=== PATIENT | female | born 1950 | race American Indian/Alaskan Native ===

== ENCOUNTER 2016-10-12 12:00 | Day surgery (SDC) | payer MEDICARE ==
[2016-10-12] MEDS ORDERED: XYLOCAINE 1%/ EPI 1:100,000 INFILTRATI ONE ×2 (13:10→14:44)
[2016-10-12] MEDS ORDERED: MARCAINE 0.5% 30 ML INFILTRATI ONE (13:10)
[2016-10-12] MEDS ORDERED: NACL 0.9% IR ONE (14:44)
[2016-10-12] MEDS ORDERED: MARCAINE 0.5% INFILTRATI ONE (14:44)
[2016-10-12 14:58] VITALS: BP 143/83
--- NOTE | 2016-10-12 15:15 | Short Stay Summary ---
Invasive Assessment - Date Date of service: 10/12/16 - History & Physical H&P: obtained from office Allergies/Adverse Reactions: Allergies No Known Allergies Allergy (Unverified 10/05/16 15:58) Home Medications: Home Medications Medication Instructions Recorded Confirmed Last Taken Type Alendronate Sodium [Alendronate 70 mg PO QWEEK 10/12/16 10/12/16 Unknown History Sodium] Amlodipine Besylate [Amlodipine 5 mg PO QDAY 10/12/16 10/12/16 Unknown History Besylate] Ergocalciferol [Vitamin D2] 1 cap PO QWEEK 10/12/16 10/12/16 Unknown History Losartan/Hydrochlorothiazide 1 tab PO QDAY 10/12/16 10/12/16 Unknown History [Losartan-Hctz 100-25 mg Tab] Losartan/Hydrochlorothiazide 1 tab PO QDAY 10/12/16 10/12/16 Unknown History [Losartan-Hctz 100-25 mg Tab] Metoprolol [Lopressor] 25 mg PO BID 10/12/16 10/12/16 Unknown History Omeprazole (Nf) [PriLOSEC (Nf)] 20 mg PO DAILY 10/12/16 10/12/16 Unknown History Sitagliptin/Metformin (Nf) 1 tab PO QDAY 10/12/16 10/12/16 Unknown History [Janumet 50-1,000 mg (Nf)] - Procedure Note Procedure: excision of STM Findings: see path Pathology: list (stm) Specimen disposition: to lab Estimated blood loss: none Tolerated Procedure Well: Yes Complications: none Invasive Assessment DC Note - Instructions Activity: no restrictions, other (may shower in 2 days) Follow up with: IDALMIS ALVARADO MD [Primary Care Provider] - 7 Days ОЛЬГА DENIS MD [Staff Physician] - 7 Days
--- NOTE | 2016-10-12 16:05 | Operative Report ---
PREOPERATIVE DIAGNOSIS: Soft tissue mass, right lateral chest wall, 1 x 1 cm. POSTOPERATIVE DIAGNOSIS: Soft tissue mass, right lateral chest wall, 1 x 1 cm. PROCEDURE: Excision of soft tissue mass. TYPE OF ANESTHESIA: Local. SURGEON: Lucrecia Garcia M.D. ESTIMATED BLOOD LOSS: None. INDICATIONS: This is a 66-year-old woman noted to have the above noted soft tissue mass. She wanted to have it excised. Clinically, this appeared to be an epidermal inclusion cyst. DESCRIPTION OF PROCEDURE: The procedure was done in the minor procedure room. The patient was placed in left lateral decubitus position. The area of concern was prepped and draped in the usual fashion. At this point, 1:1 mixture of 0.25% Marcaine and 1% lidocaine was infiltrated in field block anesthesia fashion. Elliptical incision was made around the pinpoint opening of the mass and the dissection was carried down to the base of the mass and the skin and underlying mass were excised intact and sent to pathology. Hemostasis was ascertained. Wound was irrigated. The skin was reapproximated using 4-0 Monocryl in running subcuticular fashion. The wound was dressed with skin glue. The patient tolerated the procedure. There were no immediate complications. JOB# [id number] JUAN/KEELY
== END 2016-10-12 14:51 ==
LOC: OR 12:00
PROVIDERS: ATTEND Surgery
DX: L72.8 Other follicular cysts of the skin and subcutaneous tissue (principal); M19.90 Unspecified osteoarthritis, unspecified site; E11.9 Type 2 diabetes mellitus without complications; E78.00 Pure hypercholesterolemia, unspecified; I10 Essential (primary) hypertension; Z90.710 Acquired absence of both cervix and uterus; Z79.899 Other long term (current) drug therapy; Z83.3 Family history of diabetes mellitus
CPT/HCPCS: 82962; 88304; 88307